=== PATIENT | female | born 1995 | race Caucasian/White ===

== ENCOUNTER 2018-07-13 23:48 | Emergency (ER) | payer OTHER ==
[~2018-07-13] VITALS: Ht 170.2 cm; Wt 77.1 kg
--- OUTSIDE RECORDS SUMMARY | 2018-07-13 23:51 | XMS REPORT | Clinical Summary ---
Author Author [facility] Organization [facility] Address Unknown Phone Unavailable Care Team Providers Care Financial Analyst Accountant Name Role Phone System, Provider Not In MD PCP Allergies No Known Allergies Medications End Date Status Medication Sig Dispensed Refills Start Date 07/18/2018 Active amoxicillin-pot Take 1 tablet 14 tablet 0 clavulanate (AUGMENTIN) by mouth 8 875-125 mg per tablet every 12 (twelve) hours for 7 days. 07/16/2018 Active keTOROlac (TORadol) 10 mg Take 1 tablet 20 tablet 0 tablet (10 mg total) 8 by mouth every 6 (six) hours as needed for moderate pain for up to 5 days. 08/25/2017 ibuprofen (ADVIL,MOTRIN) Take 1 tablet 20 tablet 0 600 MG tablet (600 mg 7 total) by mouth every 6 (six) hours as needed for mild pain for up to 30 days. Active Problems Not on file Encounters Care Team Description Date Type Specialty Dane Najera MD Sialadenitis (Primary Dx) 07/11/2018 Emergency Emergency Medicine Jose Stokes Jr., MD Muscle spasm (Primary Dx) 07/26/2017 Emergency Emergency Medicine after 07/12/2017 Social History Date Tobacco Use Types Packs/Day Years Used Never Smoker Smokeless Tobacco: Never Used Alcohol Use Drinks/Week oz/Week Comments Yes OCAASIONALLY Sex Assigned at Date Recorded Not on file Industry Job Start Date Occupation Not on file Not on file Not on file Travel End Travel History Travel Start No recent travel history available. Last Filed Vital Signs Time Taken Vital Sign Reading 07/11/2018 1:11 PM SECURITY SYSTEM ENGINEER Blood Pressure 103/61 07/11/2018 1:11 PM SECURITY SYSTEM ENGINEER Pulse 70 07/11/2018 1:11 PM SECURITY SYSTEM ENGINEER Temperature 36.8 C (98.3 F) 07/11/2018 1:11 PM SECURITY SYSTEM ENGINEER Respiratory Rate 18 07/11/2018 1:11 PM SECURITY SYSTEM ENGINEER Oxygen Saturation 98% - Inhaled Oxygen - Concentration 07/11/2018 7:44 AM SECURITY SYSTEM ENGINEER Weight 77.6 kg (171 lb) 07/26/2017 5:21 PM SECURITY SYSTEM ENGINEER Height 170.2 cm (5' 7") 07/11/2018 7:44 AM SECURITY SYSTEM ENGINEER Body Mass Index 26.78 Plan of Treatment Health Maintenance Due Date Last Done Comments CHLAMYDIA SCREENING 2012 MENINGOCOCCAL VACCINE (1 2012 - 2-dose series) CERVICAL CANCER SCREENING 2017 INFLUENZA VACCINE 03/05/2018 HEPATITIS B VACCINES Aged Out No longer eligible based on patient's age to complete this topic IPV VACCINES Aged Out No longer eligible based on patient's age to complete this topic Procedures Comments Procedure Name Priority Date/Time Associated Diagnosis GROUP A STREP, RAPID Routine 07/11/2018 ANTIGEN 10:32 AM SEC[employer] [address] CT SOFT TISSUE NECK W STAT 07/11/2018 CONTRAST 10:31 AM SECURITY SYSTEM ENGINEER STREP SCREEN CULTURE STAT 07/11/2018 10:31 AM SECURITY SYSTEM ENGINEER INFECTIOUS MONONUCLEOSIS Timed 07/11/2018 SCREEN 9:31 AM SECURITY SYSTEM ENGINEER ESTIMATED GFR STAT 07/11/2018 9:31 AM SECURITY SYSTEM ENGINEER BASIC METABOLIC PANEL STAT 07/11/2018 9:31 AM SECURITY SYSTEM ENGINEER HCG QUALITATIVE, URINE Routine 07/11/2018 SCREEN 8:49 AM SECURITY SYSTEM ENGINEER URINALYSIS SCREEN AND Routine 07/11/2018 MICROSCOPY, WITH REFLEX 8:49 AM SECURITY SYSTEM ENGINEER TO CULTURE XR CHEST 2 VW STAT 07/26/2017 6:50 PM SECURITY SYSTEM ENGINEER URINALYSIS SCREEN AND Routine 07/26/2017 MICROSCOPY, WITH REFLEX 6:44 PM SECURITY SYSTEM ENGINEER TO CULTURE HCG QUALITATIVE, URINE Routine 07/26/2017 SCREEN 6:44 PM SECURITY SYSTEM ENGINEER GRAM STAIN Routine 07/26/2017 6:44 PM SECURITY SYSTEM ENGINEER URINE CULTURE Routine 07/26/2017 6:44 PM SECURITY SYSTEM ENGINEER after 07/12/2017 Results * Group A strep, rapid antigen (07/11/2018 10:32 AM SECURITY SYSTEM ENGINEER) Group A strep, rapid Negative for Group A [facility] antigen result Streptococcus antigen. All [facility] negative Group A Streptococcus antigen screens are confirmed by culture. Comment: Specimen Information Specimen Source: Throat Specimen Site: Not otherwise specified Specimen Throat - Not otherwise specified Performing Organization Address City/State/Zipcode Phone Number [facility] [address] [place] [address] PATHOLOGY AND GENOMIC MEDICINE [place] [id number] [facility] [address] * CT Soft Tissue Neck W Contrast (07/11/2018 10:31 AM SECURITY SYSTEM ENGINEER) Narrative Performed At EXAMINATION:CT SOFT TISSUE NECK W CONTRAST [facility] CLINICAL HISTORY:pain w opening mouthsignificant bilateral lymphadenopathyeval for abscess COMPARISON:None. TECHNIQUE: Axial helical CT images throughout the neck soft tissues were performed with IV contrast. Sagittal and coronal reformatted images were generated. All CT images were acquired using low-dose technique with automated exposure control. FINDINGS: There is a bilateral slight enlargement of the submandibular glands with increased enhancement as well as surrounding inflammatory stranding highly compatible with bilateral submandibular adenitis. There is no fluid collection or abscess formation. There is no sialolithiasis. Reactive subcentimeter lymph nodes are seen in the jugular chains bilaterally. The parotid glands bilaterally are unremarkable. The paranasal sinuses are clear. The aerodigestive tract is grossly unremarkable. No significant cervical spondylosis is appreciated. Visualized lungs and mediastinum are unremarkable. IMPRESSION: Imaging findings highly suspicious for bilateral submandibular adenitis with no fluid collection or abscess formation. There is no sialolithiasis. [id number] Procedure Note Hm Interface, Radiology Results Incoming - 07/11/2018 7:21 PM SECURITY SYSTEM ENGINEER EXAMINATION: CT SOFT TISSUE NECK W CONTRAST CLINICAL HISTORY: pain w opening mouth significant bilateral lymphadenopathy eval for abscess COMPARISON: None. TECHNIQUE: Axial helical CT images throughout the neck soft tissues were performed with IV contrast. Sagittal and coronal reformatted images were generated. All CT images were acquired using low-dose technique with automated exposure control. FINDINGS: There is a bilateral slight enlargement of the submandibular glands with increased enhancement as well as surrounding inflammatory stranding highly compatible with bilateral submandibular adenitis. There is no fluid collection or abscess formation. There is no sialolithiasis. Reactive subcentimeter lymph nodes are seen in the jugular chains bilaterally. The parotid glands bilaterally are unremarkable. The paranasal sinuses are clear. The aerodigestive tract is grossly unremarkable. No significant cervical spondylosis is appreciated. Visualized lungs and mediastinum are unremarkable. IMPRESSION: Imaging findings highly suspicious for bilateral submandibular adenitis with no fluid collection or abscess formation. There is no sialolithiasis. [id number] Performing Organization Address City/[facility]/[place] [address] * Strep screen culture (07/11/2018 10:31 AM SECURITY SYSTEM ENGINEER) Strep screen culture No beta hemolytic Streptococci [facility] isolate isolated [facility]OSP[facility] Comment: Specimen Information Specimen Source: Throat Specimen Site: Not otherwise specified Specimen Throat - Not otherwise specified Performing Organization Address [facility] Corporation[facility] Phone Number [facility] DEPARTMENT [address] [place] [address] PATHOLOGY AND GENOMIC MEDICINE [address] * Estimated GFR (07/11/2018 9:31 AM SECURITY SYSTEM ENGINEER) Estimated GFR >=90 mL/min/1.73 m2 [facility] Comment: [facility] CatergoryUnitsInte rpretation G1 >=90 Normal or high G2 60-89Mildly decreased [id number] Mildly to moderately decreased [id number] Moderately to severely decreased G4 15-29Severely decreased G5 <15Kidney failure The eGFR was calculated using the Chronic Kidney Disease Epidemiology Collaboration (CKD-EPI) equation. Interpretation is based on recommendations of the National Kidney Foundation-Kidney Disease Outcomes Quality Initiative (NKF-KDOQI) published in 2014. Specimen Plasma specimen Performing Organization Address City/[facility]/Zipcode Phone Number [facility] [address] [place] [address] PATHOLOGY AND GENOMIC MEDICINE [place] [id number] [facility] [place], [place] [id number] [place] [address] * Infectious mononucleosis screen (07/11/2018 9:31 AM SECURITY SYSTEM ENGINEER) Heterophile Ab screen Negative Negative [facility] Specimen Blood Performing Organization Address City/[facility]/Zipcode Phone Number [facility] [address] [place] [address] PATHOLOGY AND GENOMIC MEDICINE [place] [address] * Basic metabolic panel (07/11/2018 9:31 AM SECURITY SYSTEM ENGINEER) Sodium 140 135 - 150 mEq/L [facility] Potassium 4.2 3.5 - 5.0 mEq/L [facility] Chloride 102 98 - 112 mEq/L [facility] CO2 24 24 - 31 mmol/L [facility] Anion gap 14@ANIO 7 - 15 mEq/L [facility] BUN 9 7 - 18 mg/dL [facility] Creatinine 0.50 0.50 - 0.90 mg/dL [facility] Glucose 101 (H) 65 - 100 mg/dL [facility] Calcium 9.0 8.3 - 10.2 mg/dL [facility] Specimen Plasma specimen Performing Organization Address City/[facility] Corporationcode Phone Number [place] [address] [place] [address] PATHOLOGY AND GENOMIC MEDICINE [facility] Lucero [address] * Urinalysis screen and microscopy, with reflex to culture (07/11/2018 8:49 AM SECURITY SYSTEM ENGINEER) Only the most recent of 2 results within the time period is included. Specimen site Clean catch [facility] Color, UA Yellow [facility] Appearance, UA Clear [facility] Specific gravity, UA 1.016 1.001 - 1.035 [facility] pH, UA 6.0 5.0 - 8.5 [facility] Protein, UA Negative Negative [facility] Glucose, UA Negative Negative [facility] Ketones, UA Negative Negative [facility] Bilirubin, UA Negative Negative [facility] Blood, UA Negative Negative [facility] Nitrite, UA Negative Negative [facility] Urobilinogen, UA Negative <2.0 [facility] Leukocyte esterase, UA Negative Negative [facility] Epithelial cells, UA Many /HPF [facility] WBC, UA 4 0 - 5 /HPF [facility] RBC, UA 1 0 - 5 /HPF [facility] Bacteria, UA Trace None seen [facility] Yeast, UA None seen [facility] Yeast with pseudohyphae, None seen [facility] Specimen Urine Performing Organization Address City/State/[facility] Corporationcode Phone Number [facility] [address] [place] [address] PATHOLOGY AND GENOMIC MEDICINE [address] * hCG qualitative, urine screen (07/11/2018 8:49 AM SECURITY SYSTEM ENGINEER) Only the most recent of 2 results within the time period is included. hCG qualitative, urine Negative Negative [facility] Comment: [facility] The manufacturers stated sensitivity of HcG test for serum is >/=10 mIU/ml and urine is >/=20mIU/ml. Specimen Urine Performing Organization Address [facility] Corporationconv Phone Number [facility] OF [address] [place] [address] PATHOLOGY AND GENOMIC MEDICINE [address] * XR Chest 2 Vw (07/26/2017 6:50 PM SECURITY SYSTEM ENGINEER) Narrative Performed At EXAMINATION:XR CHEST 2 VW [facility] CLINICAL HISTORY:Cough COMPARISON:The heart size appears normal. The mediastinum is unremarkable. The lungs are clear. IMPRESSION: Negative [id number] Procedure Note Hm Interface, Radiology Results Incoming - 07/26/2017 6:56 PM SECURITY SYSTEM ENGINEER EXAMINATION: XR CHEST 2 VW CLINICAL HISTORY: Cough COMPARISON: The heart size appears normal. The mediastinum is unremarkable. The lungs are clear. IMPRESSION: Negative [id number] Performing Organization Address City/[facility]/Zipcode Phone Number [facility] [address] [place] [address] * Gram stain (07/26/2017 6:44 PM SECURITY SYSTEM ENGINEER) Gram stain result No WBC's [facility] DEPARTMENT OF Many Gram positive rods PATHOLOGY AND Comment: GENOMIC MEDICINE Specimen Information Specimen Source: Urine Specimen Site: See UA Specimen Urine Performing Organization Address City/State/Zipcode Phone Number [facility] DEPARTMENT OF [address] [place] [id number] PATHOLOGY AND GENOMIC MEDICINE * Urine culture (07/26/2017 6:44 PM SECURITY SYSTEM ENGINEER) Urine culture isolate Mixed Gram positive raul [facility] DEPARTMENT OF 10-3 cfu/ml PATHOLOGY AND (A) GENOMIC MEDICINE Comment: Specimen Information Specimen Source: Urine Specimen Site: See UA Specimen Urine Performing Organization Address City/State/Zipcode Phone Number [facility] DEPARTMENT OF [address] [place] [address] PATHOLOGY AND GENOMIC MEDICINE after 07/12/2017 Insurance Payer Benefit Subscriber ID Type Phone Address Plan / Group CIGNA CIGNA OPEN xxxxxxxxx O ACCESS/NET WORK Advance Directives Patient has advance care planning documents on file. For more information, milagros gabriel contact: Zaheer Damian [address] [place] [address]
[2018-07-14] MEDS ORDERED: SODIUM CHLORIDE 0.9% 1000ML 1,000 ML IV STA (00:08)
[2018-07-14] MEDS ORDERED: MORPHINE SULFATE INJ 4 MG/ML INJ IV ONE (00:15)
[2018-07-14] MEDS ORDERED: DIPHENHYDRAMINE HCL INJ 50 MG/ML VIAL IV ONE (00:15)
[2018-07-14] MEDS ORDERED: ONDANSETRON HCL INJ 2 MG/ML VIAL IV ONE (00:15)
[2018-07-14] MEDS ORDERED: KETOROLAC TROMETHAMINE 30 MG/ML VIAL IV ONE (00:15)
[2018-07-14] MEDS ORDERED: PIPER-TAZ 3.375 GM 50 ML IV ONE (00:15)
[2018-07-14 01:47] VITALS: BP 128/76
== END 2018-07-14 01:50 | disposition home or self-care (01) ==
LOC: FSED 23:48
DX: K11.21 Acute sialoadenitis (principal)
CPT/HCPCS: 99283; J7030